=== PATIENT | female | born 1945 | race Caucasian/White ===

== ENCOUNTER 2022-06-25 11:11 | Observation (INO) ==
[2022-06-25 11:37] LABS: ABS Eosinophils 0.2 10^3/ul (0-0.6); ABS Lymphocytes 1.1 10^3/ul (1.0-4.8); ABS Monocytes 0.3 10^3/ul (0-0.8); ABS Neutrophils 2.9 10^3/ul (1.5-7.7); Eosinophil % 3.4 %; Hematocrit 39 % (35-47); Hemoglobin 12.5 g/dL (12.0-16.0); Lymphocyte % 23.5 %; Mean Corpuscular HGB Conc 32 g/dL (31-36); Mean Corpuscular Hemoglobin 30 pg (27-31); Mean Corpuscular Volume 92 fL (80-97); Mean Platelet Volume 10.2 fL (7.4-10.4); Platelet Count 148 10^3/uL (150-450); Red Blood Count 4.23 10^6 /uL (3.70-4.87); Red Cell Distribution Width 14 % (10-15); White Blood Count 4.5 10^3/uL (3.5-10.8)
[2022-06-25 12:05] LABS: INR 1.09 (0.89-1.11)
[2022-06-25 12:13] LABS: Albumin 3.8 g/dL (3.2-5.2); Albumin/Globulin Ratio 1.7 (1-3); Calcium 9.2 mg/dL (8.6-10.3); Globulin 2.3 g/dL (2-4); Potassium 4.4 mmol/L (3.5-5.0); Total Bilirubin 0.9 mg/dL (0.2-1.0); Total Protein 6.1 g/dL (6.4-8.9)
[2022-06-25 13:05] LABS: High Sensitivity Troponin 1 Hr < 3 pg/mL (<15)
[2022-06-25] MEDS ORDERED: Ondansetron 4 mg VIAL 2 MG/ML 2 ml VIAL IV PRN (16:22)
[2022-06-25] MEDS ORDERED: Enoxaparin 40 MG/0.4 ML SYR SUBCUT SCH (17:00)
[2022-06-26 07:40] LABS: ABS Eosinophils 0.2 10^3/ul (0-0.6); ABS Lymphocytes 1.7 10^3/ul (1.0-4.8); ABS Monocytes 0.4 10^3/ul (0-0.8); ABS Neutrophils 2.3 10^3/ul (1.5-7.7); Eosinophil % 3.7 %; Hematocrit 35 % (35-47); Hemoglobin 11.6 g/dL (12.0-16.0); Lymphocyte % 37.3 %; Mean Corpuscular HGB Conc 33 g/dL (31-36); Mean Corpuscular Hemoglobin 30 pg (27-31); Mean Corpuscular Volume 90 fL (80-97); Mean Platelet Volume 10.6 fL (7.4-10.4); Nucleated Red Blood Cells % 0.1; Platelet Count 134 10^3/uL (150-450); Red Blood Count 3.87 10^6 /uL (3.70-4.87); Red Cell Distribution Width 14 % (10-15); White Blood Count 4.5 10^3/uL (3.5-10.8)
[2022-06-26] MEDS ORDERED: Perflutren Lipid Microsphere 3 ML VIAL ONE (08:23)
[2022-06-26 08:29] LABS: Potassium 3.5 mmol/L (3.5-5.0)
[2022-06-26 08:30] LABS: Calcium 8.8 mg/dL (8.6-10.3); eGFR CKD-EPI 79.7 (>60)
[2022-06-26] MEDS ORDERED: SILODOSIN 8 MG PO SCH (08:30)
[2022-06-26] MEDS ORDERED: NF: Multivitamins/Minera Areds(NF) CAP PO SCH (09:00)
[2022-06-26] MEDS ORDERED: Lactated Ringers 1000 ml BAG 1,000 ML IV ONE (10:36)
[2022-06-26] MEDS ORDERED: Lactated Ringers 1000 ml BAG 1,000 ML IV SCH (11:00)
[2022-06-26 16:45] VITALS: BP 133/63
[2022-06-26] MEDS ORDERED: Latanoprost 0.005% 2.5 ml BTL BOTH EYES SCH (21:00)
== END 2022-06-26 16:45 | disposition home or self-care (01) ==
LOC: EDHOLD 11:11 → ED 11:11 → SUATTDRO 16:22 → EDHOLD 06-26 16:44
PROVIDERS: ADMIT Student in an Organized Health Care Education/Training Program; ATTEND Internal Medicine

== ENCOUNTER 2023-01-04 10:30 | Inpatient (IN) ==
[2023-01-04] MEDS ORDERED: Lactated Ringers 1000 ml BAG 1,000 ML IV ONE (10:35)
[2023-01-04] MEDS ORDERED: Ondansetron 4 mg VIAL 2 MG/ML 2 ml VIAL IV ONE (10:39)
[2023-01-04] MEDS: Morphine 2 MG/ML SYRINGE IV ONE ×2 (11:05→11:19)
[2023-01-04 11:14] LABS: ABS Lymphocytes 0.2 10^3/uL (1.0-4.8); ABS Monocytes 0.3 10^3/uL (0.0-0.9); ABS Neutrophils 3.3 10^3/uL (1.5-7.6); Eosinophil % 0.2 %; Hematocrit 33.9 % (35-45); Hemoglobin 11.7 g/dL (11.5-14.3); Lymphocyte % 5.6 %; Mean Corpuscular Hemoglobin 30.8 pg (27-33); Mean Corpuscular Hgb Conc 34.6 g/dL (31-36); Mean Platelet Volume 9.1 fL (7.5-11.2); Platelet Count 275 10^3/uL (150-450); Red Blood Count 3.81 10^6/uL (3.63-4.92); Red Cell Distribution Width 13.1 % (12-17); White Blood Count 3.8 10^3/uL (3.8-11.8)
[2023-01-04] MEDS ORDERED: Morphine 2 MG/ML SYRINGE IV ONE (11:16)
[2023-01-04 11:50] LABS: Albumin 3.2 g/dL (3.2-5.2); CO2 Carbon Dioxide 26 mmol/L (22-32); Calcium 8.3 mg/dL (8.6-10.3); Chloride 102 mmol/L (101-111); Magnesium 1.6 mg/dL (1.9-2.7); Sodium 137 mmol/L (135-145)
[2023-01-04 11:56] LABS: Blood Urea Nitrogen 12 mg/dL (6-24); Creatinine, Serum 0.64 mg/dL (0.51-0.95); Globulin 2.6 g/dL (2-4); Glucose 109 mg/dL (70-100); Total Protein 5.8 g/dL (6.4-8.9); eGFR CKD-EPI 89.8 (>60)
[2023-01-04 11:57] LABS: ALT 40 U/L (7-52); Albumin/Globulin Ratio 1.2 (1-3); Alkaline Phosphatase 103 U/L (35-149); C Reactive Protein 74.69 mg/L (<8.01); Lipase 18 U/L (11.0-82.0)
[2023-01-04 12:05] LABS: INR 1.49 (0.88-1.18)
[2023-01-04 12:31] LABS: Anion Gap 9 mmol/L (2-16)
[2023-01-04] MEDS ORDERED: Magnesium Sulfate IV 1GM/100ML 1 GM/100 ML BAG IV ONE (12:39)
[2023-01-04] MEDS ORDERED: Iohexol 350 (CONTRAST) 500 ML MDV IV ONE (12:58)
[2023-01-04] MEDS ORDERED: Piperacillin/Tazobac ADVAN 3.375 GM in NS 0.9% 100 ml BAG 100 ML IV ONE (14:23)
[2023-01-04] MEDS ORDERED: Magnesium Sulfate 2 gm BAG 2 GM/50 ML BAG IVPB ONE (14:45)
[2023-01-04] MEDS ORDERED: NS 0.9% 1000 ml BAG 1,000 ML IV SCH (15:00)
[2023-01-04] MEDS ORDERED: Zosyn 3.375 GM IV - ED ONCE IV ONE (17:30)
[2023-01-04 22:34] LABS: Potassium Redraw 3.3 mmol/L (3.5-5.0)
[2023-01-04] MEDS ORDERED: Piperacillin/Tazobac ADVAN 3.375 GM in NS 0.9% 100 ml BAG 100 ML IV SCH (23:30)
[2023-01-05] MEDS: Piperacillin/Tazobac ADVAN 3.375 GM in NS 0.9% 100 ml BAG 100 ML IV SCH ×4 (00:03→23:42)
[2023-01-05 07:58] LABS: ABS Lymphocytes 0.7 10^3/uL (1.0-4.8); ABS Monocytes 0.3 10^3/uL (0.0-0.9); ABS Neutrophils 7.9 10^3/uL (1.5-7.6); Eosinophil % 0.4 %; Hemoglobin 10.1 g/dL (11.5-14.3); Lymphocyte % 8.2 %; Mean Corpuscular Hemoglobin 31.2 pg (27-33); Mean Corpuscular Hgb Conc 34.9 g/dL (31-36); Mean Corpuscular Volume 89.4 fL (80-97); Platelet Count 245 10^3/uL (150-450); Red Blood Count 3.24 10^6/uL (3.63-4.92); Red Cell Distribution Width 13.4 % (12-17)
[2023-01-05] MEDS: SILODOSIN 8 MG PO SCH (08:07)
[2023-01-05 08:19] LABS: Calcium 7.7 mg/dL (8.6-10.3); Creatinine, Serum 0.53 mg/dL (0.51-0.95); Magnesium 2.2 mg/dL (1.9-2.7); Potassium 3.3 mmol/L (3.5-5.0)
[2023-01-05] MEDS ORDERED: Potassium Chlor 20 meq TAB.ER PO ONE (08:30)
[2023-01-05] MEDS: Enoxaparin 60 MG/0.6 ML SYR SUBCUT SCH ×2 (09:34→21:21)
[2023-01-05] MEDS ORDERED: Morphine 2 MG/ML SYRINGE IV PRN (11:01)
[2023-01-05] MEDS: Ondansetron 4 mg VIAL 2 MG/ML 2 ml VIAL IV PRN (14:21)
[2023-01-05] MEDS: PTO: Bimatoprost 0.01% OPHTH (NF) 2.5 ML BTL BOTH EYES SCH (21:20)
[2023-01-06 07:17] LABS: ABS Eosinophils 0.1 10^3/uL (0.0-0.5); ABS Lymphocytes 0.8 10^3/uL (1.0-4.8); ABS Monocytes 0.4 10^3/uL (0.0-0.9); ABS Neutrophils 8.5 10^3/uL (1.5-7.6); ABS Nucleated RBC 0.01 10^3/ul; Eosinophil % 1.5 %; Hematocrit 30.3 % (35-45); Hemoglobin 10.5 g/dL (11.5-14.3); Lymphocyte % 8.5 %; Mean Corpuscular Hemoglobin 30.7 pg (27-33); Mean Corpuscular Hgb Conc 34.7 g/dL (31-36); Mean Corpuscular Volume 88.5 fL (80-97); Mean Platelet Volume 9.2 fL (7.5-11.2); Nucleated Red Blood Cells % 0.1 /100 WBC (0.0-0.4); Platelet Count 280 10^3/uL (150-450); Red Blood Count 3.42 10^6/uL (3.63-4.92); Red Cell Distribution Width 13.5 % (12-17); White Blood Count 9.9 10^3/uL (3.8-11.8)
[2023-01-06 07:28] LABS: Calcium 7.9 mg/dL (8.6-10.3); Creatinine, Serum 0.57 mg/dL (0.51-0.95); Potassium 3.3 mmol/L (3.5-5.0); eGFR CKD-EPI 92.4 (>60)
[2023-01-06] MEDS: Piperacillin/Tazobac ADVAN 3.375 GM in NS 0.9% 100 ml BAG 100 ML IV SCH ×3 (07:34→23:27)
[2023-01-06] MEDS: Enoxaparin 60 MG/0.6 ML SYR SUBCUT SCH ×2 (08:01→20:00)
[2023-01-06] MEDS: SILODOSIN 8 MG PO SCH (08:06)
[2023-01-06] MEDS ORDERED: Polyethylene Glycol 3350 17 GM PACKET PO PRN (13:06)
[2023-01-06] MEDS: Ondansetron 4 mg VIAL 2 MG/ML 2 ml VIAL IV PRN (15:47)
[2023-01-06] MEDS: PTO: Bimatoprost 0.01% OPHTH (NF) 2.5 ML BTL BOTH EYES SCH (20:00)
[2023-01-07] MEDS: Piperacillin/Tazobac ADVAN 3.375 GM in NS 0.9% 100 ml BAG 100 ML IV SCH ×3 (07:26→23:29)
[2023-01-07] MEDS: SILODOSIN 8 MG PO SCH (08:06)
[2023-01-07] MEDS: Enoxaparin 60 MG/0.6 ML SYR SUBCUT SCH (08:07)
[2023-01-07 08:17] LABS: C Reactive Protein 137.23 mg/L (<8.01); Calcium 7.8 mg/dL (8.6-10.3); Creatinine, Serum 0.57 mg/dL (0.51-0.95); Magnesium 1.7 mg/dL (1.9-2.7); eGFR CKD-EPI 92.4 (>60)
[2023-01-07] MEDS ORDERED: Potassium Chloride LIQUID 20 MEQ/15 ML LIQUID PO ONE (12:04)
[2023-01-07] MEDS ORDERED: Magnesium Sulfate 2 gm BAG 2 GM/50 ML BAG IVPB ONE (12:04)
[2023-01-07] MEDS ORDERED: Iohexol 350 (CONTRAST) 500 ML MDV IV ONE (15:01)
[2023-01-07] MEDS: D5W 1/2 NS KCl 20 meq 1000 ml 1,000 ML IV SCH (16:42)
[2023-01-07] MEDS: PTO: Bimatoprost 0.01% OPHTH (NF) 2.5 ML BTL BOTH EYES SCH (20:42)
[2023-01-08] MEDS: D5W 1/2 NS KCl 20 meq 1000 ml 1,000 ML IV SCH (02:37)
[2023-01-08 05:54] LABS: ABS Eosinophils 0.1 10^3/uL (0.0-0.5); ABS Lymphocytes 0.9 10^3/uL (1.0-4.8); ABS Monocytes 0.7 10^3/uL (0.0-0.9); Eosinophil % 1.8 %; Hematocrit 29.1 % (35-45); Hemoglobin 10.1 g/dL (11.5-14.3); Lymphocyte % 11.4 %; Mean Corpuscular Hemoglobin 30.7 pg (27-33); Mean Corpuscular Hgb Conc 34.6 g/dL (31-36); Mean Corpuscular Volume 88.8 fL (80-97); Mean Platelet Volume 8.7 fL (7.5-11.2); Platelet Count 299 10^3/uL (150-450); Red Blood Count 3.28 10^6/uL (3.63-4.92); Red Cell Distribution Width 13.5 % (12-17); White Blood Count 7.7 10^3/uL (3.8-11.8)
[2023-01-08 06:06] LABS: C Reactive Protein 106.52 mg/L (<8.01); Calcium 7.6 mg/dL (8.6-10.3); Creatinine, Serum 0.49 mg/dL (0.51-0.95); Magnesium 1.9 mg/dL (1.9-2.7); Potassium 3.5 mmol/L (3.5-5.0); eGFR CKD-EPI 95.8 (>60)
[2023-01-08] MEDS ORDERED: HYDROmorphone 0.5 MG/0.5 ML SYRINGE ONE (07:57)
[2023-01-08] MEDS ORDERED: Bupivacaine 0.25% EPI 200,000 30 ML SDV ONE (08:10)
[2023-01-08] MEDS ORDERED: Dexamethasone IV 4 MG/ML VIAL 1 ml VIAL ONE (08:40)
[2023-01-08] MEDS ORDERED: Propofol 10 MG/ML 20 ML BTL ONE (08:40)
[2023-01-08] MEDS ORDERED: Rocuronium 50 mg VIAL 10 mg/ml 5 ml VIAL (50 mg) ONE (08:40)
[2023-01-08] MEDS ORDERED: Ondansetron 4 mg VIAL 2 MG/ML 2 ml VIAL ONE (08:40)
[2023-01-08] MEDS ORDERED: Scopolamine 1 mg/72hr PATCH TRANSDERM PRN (11:27)
[2023-01-08] MEDS ORDERED: Naloxone 0.4 mg VIAL 0.4 mg/ml 1 ml VIAL IV PRN (11:27)
[2023-01-08] MEDS ORDERED: Scopolamine 1 mg/72hr PATCH ONE (11:29)
[2023-01-08] MEDS ORDERED: fentaNYL 100 mcg/2 ml 50 MCG/ML VIAL ONE (11:47)
[2023-01-08] MEDS: fentaNYL 100 mcg/2 ml 50 MCG/ML VIAL IV PRN ×2 (11:48→12:05)
[2023-01-08] MEDS ORDERED: Acetaminophen IV 1 GM/100ML 1,000 MG/100 ML BAG IV ONE ×2 (12:39→12:42)
[2023-01-08] MEDS: Piperacillin/Tazobac ADVAN 3.375 GM in NS 0.9% 100 ml BAG 100 ML IV SCH ×3 (13:32→23:58)
[2023-01-08] MEDS: SILODOSIN 8 MG PO SCH (13:32)
[2023-01-08] MEDS: Acetaminophen IV 1 GM/100ML 1,000 MG/100 ML BAG IV SCH ×2 (15:36→23:37)
[2023-01-08] MEDS: Heparin 5000 UNITS/ML 1 mL VIAL SUBCUT SCH ×2 (17:31→23:42)
[2023-01-08] MEDS: PTO: Bimatoprost 0.01% OPHTH (NF) 2.5 ML BTL BOTH EYES SCH (20:02)
[2023-01-09 05:40] LABS: ABS Lymphocytes 0.7 10^3/uL (1.0-4.8); ABS Monocytes 0.8 10^3/uL (0.0-0.9); ABS Neutrophils 11.3 10^3/uL (1.5-7.6); Eosinophil % 0.3 %; Hematocrit 31.6 % (35-45); Hemoglobin 10.9 g/dL (11.5-14.3); Lymphocyte % 5.7 %; Mean Corpuscular Hemoglobin 30.1 pg (27-33); Mean Corpuscular Hgb Conc 34.5 g/dL (31-36); Mean Corpuscular Volume 87.3 fL (80-97); Mean Platelet Volume 8.6 fL (7.5-11.2); Platelet Count 356 10^3/uL (150-450); Red Blood Count 3.62 10^6/uL (3.63-4.92); Red Cell Distribution Width 13.5 % (12-17); White Blood Count 12.9 10^3/uL (3.8-11.8)
[2023-01-09] MEDS: D5W 1/2 NS KCl 20 meq 1000 ml 1,000 ML IV SCH (05:45)
[2023-01-09 06:03] LABS: Calcium 7.7 mg/dL (8.6-10.3); Creatinine, Serum 0.62 mg/dL (0.51-0.95); Magnesium 1.7 mg/dL (1.9-2.7); Phosphorus 3.5 mg/dL (2.5-5.0); Potassium 3.9 mmol/L (3.5-5.0); eGFR CKD-EPI 90.5 (>60)
[2023-01-09] MEDS: Piperacillin/Tazobac ADVAN 3.375 GM in NS 0.9% 100 ml BAG 100 ML IV SCH ×2 (08:48→15:37)
[2023-01-09] MEDS: Acetaminophen IV 1 GM/100ML 1,000 MG/100 ML BAG IV SCH ×3 (08:48→23:53)
[2023-01-09] MEDS: SILODOSIN 8 MG PO SCH (08:49)
[2023-01-09] MEDS: Heparin 5000 UNITS/ML 1 mL VIAL SUBCUT SCH ×3 (08:50→23:56)
[2023-01-09] MEDS: Ondansetron 4 mg VIAL 2 MG/ML 2 ml VIAL IV PRN ×2 (08:54→19:32)
[2023-01-09] MEDS ORDERED: NS 0.9% 1000 ml BAG 1,000 ML IV ONE (18:00)
[2023-01-09] MEDS: PTO: Bimatoprost 0.01% OPHTH (NF) 2.5 ML BTL BOTH EYES SCH (21:25)
[2023-01-09] MEDS ORDERED: D5W 1/2 NS KCl 20 meq 1000 ml 1,000 ML IV SCH (22:00)
[2023-01-10] MEDS: Piperacillin/Tazobac ADVAN 3.375 GM in NS 0.9% 100 ml BAG 100 ML IV SCH ×4 (00:12→23:27)
[2023-01-10] MEDS: Ondansetron 4 mg VIAL 2 MG/ML 2 ml VIAL IV PRN ×4 (02:09→18:06)
[2023-01-10 07:56] LABS: ABS Basophils 0.1 10^3/uL (0.0-0.1); ABS Eosinophils 0.3 10^3/uL (0.0-0.5); ABS Lymphocytes 0.8 10^3/uL (1.0-4.8); ABS Monocytes 0.9 10^3/uL (0.0-0.9); ABS Neutrophils 13.7 10^3/uL (1.5-7.6); Hematocrit 35.8 % (35-45); Hemoglobin 12.3 g/dL (11.5-14.3); Lymphocyte % 5.4 %; Mean Corpuscular Hemoglobin 30.6 pg (27-33); Mean Corpuscular Hgb Conc 34.3 g/dL (31-36); Mean Corpuscular Volume 89.4 fL (80-97); Mean Platelet Volume 8.7 fL (7.5-11.2); Platelet Count 452 10^3/uL (150-450); Red Blood Count 4.01 10^6/uL (3.63-4.92); Red Cell Distribution Width 13.6 % (12-17); White Blood Count 15.8 10^3/uL (3.8-11.8)
[2023-01-10 08:34] LABS: Calcium 8.1 mg/dL (8.6-10.3); Creatinine, Serum 0.63 mg/dL (0.51-0.95); Potassium 4.3 mmol/L (3.5-5.0); eGFR CKD-EPI 90.2 (>60)
[2023-01-10] MEDS: Acetaminophen IV 1 GM/100ML 1,000 MG/100 ML BAG IV SCH ×3 (08:58→22:43)
[2023-01-10] MEDS: Heparin 5000 UNITS/ML 1 mL VIAL SUBCUT SCH ×3 (09:00→23:43)
[2023-01-10] MEDS: SILODOSIN 8 MG PO SCH (09:03)
[2023-01-10] MEDS: D5W NS 0.9% 20Meq KCL 1000 ml 1,000 ML IV SCH (15:17)
[2023-01-10] MEDS: PTO: Bimatoprost 0.01% OPHTH (NF) 2.5 ML BTL BOTH EYES SCH (21:42)
[2023-01-11] MEDS: D5W NS 0.9% 20Meq KCL 1000 ml 1,000 ML IV SCH (02:22)
[2023-01-11 06:10] LABS: ABS Eosinophils 0.4 10^3/uL (0.0-0.5); ABS Lymphocytes 0.9 10^3/uL (1.0-4.8); ABS Monocytes 0.7 10^3/uL (0.0-0.9); ABS Neutrophils 12.8 10^3/uL (1.5-7.6); ABS Nucleated RBC 0.01 10^3/ul; Eosinophil % 2.5 %; Hematocrit 33.2 % (35-45); Hemoglobin 11.2 g/dL (11.5-14.3); Lymphocyte % 6.3 %; Mean Corpuscular Hemoglobin 29.7 pg (27-33); Mean Corpuscular Hgb Conc 33.8 g/dL (31-36); Mean Corpuscular Volume 87.8 fL (80-97); Mean Platelet Volume 8.6 fL (7.5-11.2); Platelet Count 469 10^3/uL (150-450); Red Blood Count 3.78 10^6/uL (3.63-4.92); Red Cell Distribution Width 13.6 % (12-17); White Blood Count 14.9 10^3/uL (3.8-11.8)
[2023-01-11 06:27] LABS: Creatinine, Serum 0.61 mg/dL (0.51-0.95); Potassium 4.4 mmol/L (3.5-5.0); eGFR CKD-EPI 90.9 (>60)
[2023-01-11] MEDS ORDERED: D5W NS 0.9% 20Meq KCL 1000 ml 1,000 ML IV SCH (07:38)
[2023-01-11] MEDS: Acetaminophen IV 1 GM/100ML 1,000 MG/100 ML BAG IV SCH ×3 (09:00→23:53)
[2023-01-11] MEDS: SILODOSIN 8 MG PO SCH ×3 (09:07→18:26)
[2023-01-11] MEDS: Enoxaparin 40 MG/0.4 ML SYR SUBCUT SCH ×2 (09:11→10:31)
[2023-01-11] MEDS: Piperacillin/Tazobac ADVAN 3.375 GM in NS 0.9% 100 ml BAG 100 ML IV SCH ×2 (09:13→15:04)
[2023-01-11] MEDS: PTO: Bimatoprost 0.01% OPHTH (NF) 2.5 ML BTL BOTH EYES SCH (20:01)
[2023-01-12] MEDS: Piperacillin/Tazobac ADVAN 3.375 GM in NS 0.9% 100 ml BAG 100 ML IV SCH ×2 (00:19→08:34)
[2023-01-12 06:18] LABS: ABS Basophils 0.1 10^3/uL (0.0-0.1); ABS Eosinophils 0.4 10^3/uL (0.0-0.5); ABS Lymphocytes 0.9 10^3/uL (1.0-4.8); ABS Monocytes 0.6 10^3/uL (0.0-0.9); ABS Neutrophils 9.1 10^3/uL (1.5-7.6); Eosinophil % 3.5 %; Hematocrit 28.9 % (35-45); Lymphocyte % 7.8 %; Mean Corpuscular Hemoglobin 30.9 pg (27-33); Mean Corpuscular Hgb Conc 34.6 g/dL (31-36); Mean Corpuscular Volume 89.6 fL (80-97); Mean Platelet Volume 8.3 fL (7.5-11.2); Platelet Count 458 10^3/uL (150-450); Red Blood Count 3.23 10^6/uL (3.63-4.92); Red Cell Distribution Width 13.6 % (12-17)
[2023-01-12 06:48] LABS: Calcium 7.6 mg/dL (8.6-10.3); Creatinine, Serum 0.48 mg/dL (0.51-0.95); Potassium 4.3 mmol/L (3.5-5.0); eGFR CKD-EPI 96.3 (>60)
[2023-01-12] MEDS ORDERED: D5W NS 0.9% 20Meq KCL 1000 ml 1,000 ML IV SCH (07:52)
[2023-01-12] MEDS: Enoxaparin 40 MG/0.4 ML SYR SUBCUT SCH (07:57)
[2023-01-12] MEDS: Acetaminophen IV 1 GM/100ML 1,000 MG/100 ML BAG IV SCH (08:08)
[2023-01-12] MEDS: SILODOSIN 8 MG PO SCH (18:03)
[2023-01-12] MEDS: PTO: Bimatoprost 0.01% OPHTH (NF) 2.5 ML BTL BOTH EYES SCH (21:09)
[2023-01-13] MEDS: SILODOSIN 8 MG PO SCH (17:20)
[2023-01-13] MEDS: PTO: Bimatoprost 0.01% OPHTH (NF) 2.5 ML BTL BOTH EYES SCH (20:26)
[2023-01-14] MEDS: SILODOSIN 8 MG PO SCH (18:26)
[2023-01-14] MEDS: PTO: Bimatoprost 0.01% OPHTH (NF) 2.5 ML BTL BOTH EYES SCH (21:08)
[2023-01-15 06:29] LABS: Rapid COVID-19 Molecular Undetected (Undetected)
[2023-01-15 10:28] VITALS: BP 138/64
== END 2023-01-15 13:37 | DRG 329 ==
LOC: ED 10:30 → SUATTDRO 14:44 → EDHOLD 14:44 → SSU 20:49
PROVIDERS: ADMIT Internal Medicine; ATTEND Surgery

== ENCOUNTER 2023-03-12 07:30 | Inpatient (IN) ==
[~2023-03-12 07:30] MED LIST: Buffered Lidocaine 1% SYRIN 1 ml INTRADERM ONE; Famotidine IV 10 MG/ML 2 ml VIAL (20 mg) IV ONE; Lactated Ringers 1000 ml BAG 1,000 ML IV SCH; Naloxone 0.4 mg VIAL 0.4 mg/ml 1 ml VIAL IV PRN; Prochlorperazine 5 mg/ml 2 ml VIAL (10 mg) IV PRN; fentaNYL 100 mcg/2 ml 50 MCG/ML VIAL IV PRN
[2023-03-12] MEDS ORDERED: Famotidine IV 10 MG/ML 2 ml VIAL (20 mg) ONE (08:03)
[2023-03-12] MEDS ORDERED: ceFAZolin 2 GM in NS PREMIX 2 GM/100 ML BAG IVPB ONE (08:03)
[2023-03-12] MEDS ORDERED: Lidocaine 2% PF 5 ML VIAL ONE (08:45)
[2023-03-12] MEDS ORDERED: Propofol 10 MG/ML 20 ML BTL ONE (08:45)
[2023-03-12] MEDS ORDERED: Rocuronium 50 mg VIAL 10 mg/ml 5 ml VIAL (50 mg) ONE (08:45)
[2023-03-12 08:47] LABS: Rapid COVID-19 Molecular Undetected (Undetected)
[2023-03-12] MEDS ORDERED: Bupivacaine 0.5% W/EPI SDV 10 ML VIAL INJ ONE (09:15)
[2023-03-12] MEDS ORDERED: fentaNYL 100 mcg/2 ml 50 MCG/ML VIAL ONE (09:40)
[2023-03-12] MEDS ORDERED: Dexamethasone IV 4 MG/ML VIAL 1 ml VIAL ONE (09:57)
[2023-03-12] MEDS ORDERED: Phenylephrine IV 10 MG/ML 1 ml VIAL ONE (09:58)
[2023-03-12] MEDS ORDERED: Ondansetron 4 mg VIAL 2 MG/ML 2 ml VIAL ONE (10:16)
[2023-03-12] MEDS ORDERED: HYDROmorphone 0.5 MG/0.5 ML SYRINGE IV SLOW PU PRN (11:45)
[2023-03-12] MEDS ORDERED: Dextran 70/Hypromellose Tears Eye Drops 15 ml BTL (for Artificials Tears) BOTH EYES PRN (12:55)
[2023-03-12] MEDS: Acetaminophen IV 1 GM/100ML 1,000 MG/100 ML BAG IV SCH ×2 (14:46→20:32)
[2023-03-12] MEDS: PTO: Bimatoprost 0.01% OPHTH (NF) 2.5 ML BTL BOTH EYES SCH (20:33)
[2023-03-13] MEDS: Acetaminophen IV 1 GM/100ML 1,000 MG/100 ML BAG IV SCH ×4 (01:52→21:44)
[2023-03-13] MEDS ORDERED: D5W 1/2 NS 1000 ml BAG 1,000 ML IV ONE (03:42)
[2023-03-13 03:52] LABS: ABS Basophils 0.1 10^3/uL (0.0-0.1); ABS Eosinophils 0.1 10^3/uL (0.0-0.5); ABS Lymphocytes 0.7 10^3/uL (1.0-4.8); ABS Monocytes 0.2 10^3/uL (0.0-0.9); ABS Neutrophils 9.1 10^3/uL (1.5-7.6); ABS Nucleated RBC 0.01 10^3/ul; Eosinophil % 0.5 %; Hemoglobin 10.4 g/dL (11.5-14.3); Lymphocyte % 7.1 %; Mean Corpuscular Hgb Conc 34.8 g/dL (31-36); Mean Platelet Volume 9.1 fL (7.5-11.2); Nucleated Red Blood Cells % 0.1 /100 WBC (0.0-0.4); Platelet Count 197 10^3/uL (150-450); Red Blood Count 3.36 10^6/uL (3.63-4.92); White Blood Count 10.1 10^3/uL (3.8-11.8)
[2023-03-13] MEDS: Ondansetron 4 mg VIAL 2 MG/ML 2 ml VIAL IV PRN ×2 (03:52→13:19)
[2023-03-13 04:08] LABS: Calcium 8.8 mg/dL (8.6-10.3); Creatinine, Serum 0.69 mg/dL (0.51-0.95); Potassium 4.3 mmol/L (3.5-5.0); eGFR CKD-EPI 87.7 (>60)
[2023-03-13] MEDS: SILODOSIN 8 MG PO SCH (09:02)
[2023-03-13] MEDS ORDERED: D5NS 0.9% 1000 ml BAG 1,000 ML IV SCH (17:00)
[2023-03-13] MEDS: PTO: Bimatoprost 0.01% OPHTH (NF) 2.5 ML BTL BOTH EYES SCH (21:45)
[2023-03-14] MEDS: Acetaminophen IV 1 GM/100ML 1,000 MG/100 ML BAG IV SCH ×4 (03:42→22:03)
[2023-03-14] MEDS: SILODOSIN 8 MG PO SCH (08:46)
[2023-03-14 10:19] LABS: ABS Eosinophils 0.1 10^3/uL (0.0-0.5); ABS Lymphocytes 0.4 10^3/uL (1.0-4.8); ABS Monocytes 0.7 10^3/uL (0.0-0.9); ABS Neutrophils 12.4 10^3/uL (1.5-7.6); ABS Nucleated RBC 0.01 10^3/ul; Eosinophil % 0.7 %; Hematocrit 32.5 % (35-45); Hemoglobin 10.9 g/dL (11.5-14.3); Lymphocyte % 2.8 %; Mean Corpuscular Hemoglobin 29.7 pg (27-33); Mean Corpuscular Hgb Conc 33.7 g/dL (31-36); Mean Corpuscular Volume 88.3 fL (80-97); Platelet Count 214 10^3/uL (150-450); Red Blood Count 3.67 10^6/uL (3.63-4.92); Red Cell Distribution Width 15.7 % (12-17); White Blood Count 13.5 10^3/uL (3.8-11.8)
[2023-03-14 10:41] LABS: Calcium 8.4 mg/dL (8.6-10.3); Creatinine, Serum 0.55 mg/dL (0.51-0.95); Potassium 3.7 mmol/L (3.5-5.0); eGFR CKD-EPI 92.6 (>60)
[2023-03-14] MEDS: PTO: Bimatoprost 0.01% OPHTH (NF) 2.5 ML BTL BOTH EYES SCH (21:32)
[2023-03-15] MEDS: Acetaminophen IV 1 GM/100ML 1,000 MG/100 ML BAG IV SCH ×2 (04:04→10:18)
[2023-03-15] MEDS: SILODOSIN 8 MG PO SCH (08:43)
[2023-03-15 09:56] VITALS: BP 159/71
== END 2023-03-15 12:07 | disposition home or self-care (01) | DRG 331 ==
LOC: OR 07:30 → SSU 12:26
PROVIDERS: ADMIT Surgery; ATTEND Surgery

== ENCOUNTER 2023-09-20 06:03 | Observation (INO) ==
[~2023-09-20 06:03] MED LIST changes: -Famotidine IV 10 MG/ML 2 ml VIAL (20 mg) IV ONE; -Naloxone 0.4 mg VIAL 0.4 mg/ml 1 ml VIAL IV PRN; -Prochlorperazine 5 mg/ml 2 ml VIAL (10 mg) IV PRN; +Scopolamine 1 mg/72hr PATCH TRANSDERM ONE; -fentaNYL 100 mcg/2 ml 50 MCG/ML VIAL IV PRN
[2023-09-20] MEDS ORDERED: Propofol 10 MG/ML 20 ML BTL ONE (06:31)
[2023-09-20] MEDS ORDERED: Ondansetron 4 mg VIAL 2 MG/ML 2 ml VIAL ONE (06:31)
[2023-09-20] MEDS ORDERED: Dexamethasone IV 4 MG/ML VIAL 1 ml VIAL ONE (06:31)
[2023-09-20] MEDS ORDERED: Sevoflurane BOTTLE ONE (06:33)
[2023-09-20] MEDS ORDERED: Lidocaine 2.5%/Prilocain 2.5% 5 GM TUBE ONE (06:33)
[2023-09-20] MEDS ORDERED: Scopolamine 1 mg/72hr PATCH ONE (06:33)
[2023-09-20] MEDS ORDERED: Heparin 5000 UNITS/ML 1 mL VIAL ONE (06:33)
[2023-09-20] MEDS ORDERED: ceFAZolin 2 GM in NS PREMIX 2 GM/100 ML BAG IVPB ONE (06:33)
[2023-09-20] MEDS ORDERED: Lidocaine 2% PF 5 ML VIAL ONE (06:33)
[2023-09-20] MEDS ORDERED: fentaNYL 100 mcg/2 ml 50 MCG/ML VIAL ONE (06:33)
[2023-09-20] MEDS ORDERED: Bupivacaine 0.5% 50 ML MDV VIAL ONE (07:05)
[2023-09-20] MEDS ORDERED: ISOSULFAN BLUE 1% 5 ML VIAL 10 MG/ML SUBCUT ONE (07:05)
[2023-09-20 07:20] LABS: Rapid COVID-19 Molecular Undetected (Undetected)
[2023-09-20] MEDS ORDERED: Phenylephrine IV 10 MG/ML 1 ml VIAL ONE (07:56)
[2023-09-20] MEDS ORDERED: Glycopyrrolate IV 0.2 MG/ML 1 ML VIAL ONE (07:56)
[2023-09-20] MEDS ORDERED: Metoclopramide 5 MG/ML VIAL (10 mg) IV PRN (08:54)
[2023-09-20] MEDS ORDERED: Naloxone 0.4 mg VIAL 0.4 mg/ml 1 ml VIAL IV PRN ×2 (08:54)
[2023-09-20] MEDS ORDERED: fentaNYL 100 mcg/2 ml 50 MCG/ML VIAL IV PRN (08:54)
[2023-09-20] MEDS ORDERED: Ondansetron 4 mg VIAL 2 MG/ML 2 ml VIAL IV PRN ×2 (08:54→11:31)
[2023-09-20] MEDS ORDERED: HYDROmorphone 0.5 MG/0.5 ML SYRINGE ONE (08:56)
[2023-09-20] MEDS ORDERED: Benzocaine/Menthol LOZ PO PRN (11:29)
[2023-09-20] MEDS ORDERED: HYDROcodone/ACETAMIN 5/325 mg TAB PO PRN (11:32)
[2023-09-20] MEDS ORDERED: Morphine 2 MG/ML SYRINGE IV PRN (11:32)
[2023-09-20] MEDS ORDERED: Artificial Tear OPHTH.OINT 3.5 GM BOTH EYES PRN (14:14)
[2023-09-20] MEDS: Heparin 5000 UNITS/ML 1 mL VIAL SUBCUT SCH ×2 (16:00→22:38)
[2023-09-20] MEDS: ceFAZolin 2 GM PREMIX 2 GM/50 ML BAG IV SCH ×2 (16:00→23:43)
[2023-09-20] MEDS ORDERED: Latanoprost 0.005% 2.5 ml BTL BOTH EYES SCH (21:30)
[2023-09-20] MEDS ORDERED: SILODOSIN 8 MG PO SCH (22:00)
[2023-09-21 06:44] VITALS: BP 174/71
[2023-09-21] MEDS: Heparin 5000 UNITS/ML 1 mL VIAL SUBCUT SCH (06:45)
[2023-09-21] MEDS: ceFAZolin 2 GM PREMIX 2 GM/50 ML BAG IV SCH (07:53)
== END 2023-09-21 11:05 | disposition home or self-care (01) ==
LOC: OR 06:03 → SSU 06:03
PROVIDERS: ADMIT Student in an Organized Health Care Education/Training Program; ATTEND Student in an Organized Health Care Education/Training Program